=== PATIENT | female | born 1990 | race African-American/Black ===

== ENCOUNTER → 2016-12-28 | Outpatient (CLI) | payer BC, MEDICAID | LOC: HPND 08:04 | PROVIDERS: ATTEND Obstetrics & Gynecology | DX: O99.282 Endocrine, nutritional and metabolic diseases complicating pregnancy, second trimester (principal); O24.112 Pre-existing type 2 diabetes mellitus, in pregnancy, second trimester; O10.912 Unspecified pre-existing hypertension complicating pregnancy, second trimester | CPT/HCPCS: 76811; 76825; 76827; 93325 ==

== ENCOUNTER → 2017-01-25 | Outpatient (CLI) | payer BC, MEDICAID | LOC: HPND 10:55 | PROVIDERS: ATTEND Obstetrics & Gynecology | DX: O24.112 Pre-existing type 2 diabetes mellitus, in pregnancy, second trimester (principal); O10.013 Pre-existing essential hypertension complicating pregnancy, third trimester; O43.192 Other malformation of placenta, second trimester; O99.212 Obesity complicating pregnancy, second trimester; E66.09 Other obesity due to excess calories | CPT/HCPCS: 76816 ==